=== PATIENT | female | born 1980 | race Two or more races ===

== ENCOUNTER 2021-09-22 21:35 | Emergency (ER) | payer MEDICAID ==
[~2021-09-22] VITALS: Ht 165.1 cm; Wt 68.0 kg
[2021-09-22 22:05] VITALS: BP 142/102
--- NOTE | 2021-09-23 01:57 | NUR ---
PATIENT IS PICKED UP BY DAUGHTER, EMERITA.
--- NOTE | 2021-09-23 02:02 | NUR ---
Patient discharged to home in stable condition. Written and verbal after care instructions given. Patient verbalizes understanding of instruction.
== END 2021-09-23 02:02 | disposition home or self-care (01) ==
LOC: ER 22:02
DX: F10.129 Alcohol abuse with intoxication, unspecified (principal); I10 Essential (primary) hypertension; F32.9 Major depressive disorder, single episode, unspecified; Y90.9 Presence of alcohol in blood, level not specified
CPT/HCPCS: 82962-TC

== ENCOUNTER 2023-06-15 11:07 | Inpatient (IN) | payer MEDICAID ==
[~2023-06-15] VITALS: Ht 162.6 cm; Wt 78.0 kg
--- NOTE | 2023-06-15 11:25 | NUR ---
BIBRA 86 FOR NAUSEA AND VOMITING. PATIENT HAS UTERINE CANCER AND RECEIVES CHEMOTHERAPY. A/O X 3, TOLERATING WELL ON ROOM AIR, WILL CONTINUE TO MONITOR.
--- NOTE | 2023-06-15 11:50 | NUR ---
BLOOD SAMPLES OBTAINED
[2023-06-15] MEDS ORDERED: LIDOCAINE VISCOUS 2% UD 15 ML UDC ONE (11:52)
[2023-06-15] MEDS ORDERED: ONDANSETRON HCL/PF 4 MG/2 ML VIAL ONE (11:52)
[2023-06-15] MEDS ORDERED: MAG HYDROX/AL HYDROX/SIMETH 30 ML UDC ONE (11:52)
[2023-06-15] MEDS ORDERED: MORPHINE SULFATE INJ 4 MG/ML DISP.SYRIN ONE (11:53)
[2023-06-15] MEDS ORDERED: FAMOTIDINE/PF INJ 20 MG/2 ML VIAL IV ONE ×2 (11:53→12:00)
[2023-06-15 12:00] LABS: BASOPHILS % (AUTO) 0.1 % (0.0-2.0); EOSINOPHILS % (AUTO) 0.2 % (0.0-6.0); HEMATOCRIT 28 % (33-45); HEMOGLOBIN 8.9 g/dL (11.5-14.8); LYMPHOCYTES # (AUTO) 0.5 K/uL (0.8-4.8); LYMPHOCYTES % (AUTO) 10.1 % (20.0-44.0); MEAN CORPUSCULAR HGB CONC 32 g/dl (31.0-36.0); MEAN CORPUSCULAR VOLUME 83 fL (82-100); MONOCYTES # (AUTO) 0.3 K/uL (0.1-1.30); MONOCYTES % (AUTO) 5.4 % (2.0-12.0); NEUTROPHILS # (AUTO) 4.5 K/uL (1.8-8.9); NEUTROPHILS % (AUTO) 84.2 % (43.0-81.0); PLATELET COUNT (AUTO) 141 K/uL (150-450); RED BLOOD CELL COUNT(AUTO) 3.33 MIL/uL (4.0-5.2); WHITE BLOOD COUNT (AUTO) 5.3 K/uL (4.3-11.0)
[2023-06-15] MEDS ORDERED: ONDANSETRON HCL/PF 4 MG/2 ML VIAL IVP ONE (12:00)
[2023-06-15] MEDS ORDERED: LIDOCAINE VISCOUS 2% UD 15 ML UDC MM ONE (12:00)
[2023-06-15] MEDS ORDERED: IV NS 0.9% 1,000 ML BAG IV ONE ×2 (12:00→13:00)
[2023-06-15] MEDS ORDERED: MORPHINE SULFATE INJ 2 MG/ML DISP.SYRIN IV ONE (12:00)
[2023-06-15] MEDS ORDERED: MAG HYDROX/AL HYDROX/SIMETH 30 ML UDC PO ONE (12:00)
[2023-06-15 12:11] LABS: CALCIUM, SERUM 9.3 mg/dL (8.5-10.1); CARBON DIOXIDE 28 mmol/L (21-32); CHLORIDE 94 mmol/L (98-107); CREATININE 0.7 mg/dL (0.6-1.3); GLUCOSE 95 mg/dL (74-106); POTASSIUM 3.3 mmol/L (3.5-5.1); SODIUM SERUM 137 mmol/L (136-145); UREA NITROGEN, BLOOD 13 mg/dL (7-18)
--- NOTE | 2023-06-15 12:19 | NUR ---
LACTIC ACID 5.4
[2023-06-15] MEDS ORDERED: IV NS 0.9% 250 ML IV ONE (12:23)
[2023-06-15] MEDS ORDERED: IOHEXOL-300 100 ML VIAL IV ONE (12:23)
[2023-06-15 12:24] LABS: ALANINE AMINOTRANSFERASE 101 U/L (12-78); ALBUMIN 3.9 g/dL (3.4-5.0); ALKALINE PHOSPHATASE 105 U/L (46-116); ASPARTATE AMINOTRANSFERASE 189 U/L (15-37); BILIRUBIN,DIRECT 0.2 mg/dL (0.0-0.2); BILIRUBIN,TOTAL 0.7 mg/dL (0.2-1.0); LIPASE 89 U/L (73-393); TOTAL PROTEIN, SERUM 7.7 g/dL (6.4-8.2)
--- NOTE | 2023-06-15 12:25 | NUR ---
KARINA Mayer.4MD MADE AWARE
[2023-06-15] MEDS ORDERED: PIPERACI/TAZO 3.375GM/D5W 50ML PB IV ONE (12:40)
--- NOTE | 2023-06-15 12:59 | NUR ---
MOVE SHEET SUBMITTED
[2023-06-15] MEDS ORDERED: PIPERACILLIN /TAZOBACTAM 3.375 G in IV D5W 50 ML IV ONE (13:00)
--- NOTE | 2023-06-15 13:21 | NUR ---
URINE SAMPLE OBTAINED
[2023-06-15] MEDS ORDERED: AMOX1TAB16 PO (13:29)
[2023-06-15 13:41] LABS: BILIRUBIN,URINE NEGATIVE (NEGATIVE); COLOR,URINE YELLOW (YELLOW); LEUKOCYTE ESTERASE ,URINE 1+ (NEGATIVE); NITRITE, URINE NEGATIVE (NEGATIVE); PROTEIN,URINE 1+ mg/dl (NEGATIVE); UGLUCOSE NEGATIVE (NEGATIVE); UROBILINOGEN,URINE 0.2 EU/dL (0.2)
[2023-06-15 13:56] LABS: BACTERIA,URINE Rare /HPF (None Seen); SQUAMOUS EPITHELIAL CELL,UR Few /HPF (None Seen)
--- NOTE | 2023-06-15 15:07 | NUR ---
LACTIC ACID 3.7 Addendum: 06/15/23 at 1509 by REINA MD MARINELLI
--- NOTE | 2023-06-15 16:02 | NUR ---
PATIENT TRANSFERED TO 108-1, ALL CARE ENDORSED TO RN
[2023-06-15] MEDS ORDERED: HYDROCODONE/APAP 5/325MG TABLET PO PRN (16:30)
[2023-06-15] MEDS ORDERED: ZOLPIDEM TARTRATE 5 MG TABLET PO PRN (16:30)
[2023-06-15] MEDS ORDERED: MAG HYDROX/AL HYDROX/SIMETH 30 ML UDC PO PRN (16:30)
[2023-06-15] MEDS ORDERED: ONDANSETRON HCL/PF 4 MG/2 ML VIAL IVP PRN (16:30)
[2023-06-15] MEDS ORDERED: MAGNESIUM HYDROXIDE 30 ML UDC PO PRN (16:30)
[2023-06-15] MEDS ORDERED: MORPHINE SULFATE INJ 2 MG/ML DISP.SYRIN IV PRN (16:30)
[2023-06-15] MEDS ORDERED: Z GUARD REMEDY 4 OZ OINT TP PRN (16:30)
[2023-06-15] MEDS ORDERED: IV 1/2NS 1000 ML 1,000 ML IV PRN (16:30)
[2023-06-15] MEDS ORDERED: ACETAMINOPHEN 325 MG TABLET PO PRN (16:30)
--- NOTE | 2023-06-15 19:00 | NUR ---
ADMISSION NOTE RECEIVED PATIENT FROM ER ACCOMPANIED BY ER NURSE A&O X3-4, CHINESE SPEAKING. PATIENT DAUGHTER AT BEDSIDE. ON RA, NOT IN ANY FORM OF DISTRESS NOTED. VITALS TAKEN, STABLE AND RECORDED. IV ACCESS ON LFA GAUGE 20, PATENT AND INTACT, FLUSHES WELL. PATIENT AMBULATORY WITH ASSIST. NO SKIN ISSUES NOTED, INITIAL ASSESSMENT DONE. PLACED PATIENT ON CARDIAC MONITORING. NOTIFIED DR. DEGROOT OF THE ADMISSION. ORIENTED PATIENT TO ROOM AND USE OF CALL ARORA. SAFETY MEASURES IMPLEMENTED: BED LOCKED IN THE LOWEST POSITION, SR UP X2, CALL LIGHT AND BELONGINGS WITHIN REACH. WILL ENDORSED TO NEXT NURSE FOR BJORN.
--- NOTE | 2023-06-15 19:30 | NUR ---
TRANSPORTATION DEPARTMENT HEAD OPENING NOTES PATIENT RECEIVED IN BED A/O X 4 ABLE TO VERBALIZED NEEDS AND CONCERNS, SPANISH SPEAKING, PATIENT ON ROOM AIR AND ON TELE MONITORING DEVICE, PATIENT IS CONTINENT AND AMBULATORY WITH ASSIST, SKIN IS INTACT, PATIENT IS NPO FOR NOW DUE TO NAUSEA AND VOMITING, IV IS PATENT AND INTACT ON LFA GAUGE 20 WITH 1/2 NS IL X 150 ML/HR NO INFILTRATION OR SWELLING NOTED. . KEPT PATIENT WARM AND COMFORTABLE, KEPT BED ON LOWER LOCK POSITION, WITH SIDE RAILS UP X 2 ALL THE TIME, KEPT CALL LIGHT WITHIN REACH, WILL CONTINUE TO MONITOR.
--- NOTE | 2023-06-15 19:30 | NUR ---
1929 Dr. Oviedo at bedside and examined patient, he spoke with patient's daughter via phone. No orders given at this time.
--- NOTE | 2023-06-15 21:02 | NUR ---
RN NOTE WITNESSED RETURN OF AMBIEN - WHOLE PILL - BY RNCHAVO.
[2023-06-15] MEDS: PIPERACILLIN /TAZOBACTAM 3.375 G in IV D5W 100 ML IV SCH (21:03)
[2023-06-15] MEDS ORDERED: ACETAMINOPHEN 650 MG/SUPP.RECT RC PRN (21:30)
[2023-06-15] MEDS ORDERED: PANTOPRAZOLE 40 MG VIAL IV SCH (21:30)
--- NOTE | 2023-06-15 21:30 | NUR ---
RN NOTES PATIENT COMPLAINS OF HEADACHE TYLENOL 650 MG SUPPOSITORY GIVEN, WILL CONTINUE TO MONITOR
--- NOTE | 2023-06-15 21:32 | NUR ---
RN NOTE WITNESSED ADRIANA TONY WASTE 1MG OF ATIVAN.
[2023-06-15] MEDS: LORAZEPAM INJ 2 MG/ML VIAL IV PRN (21:35)
--- NOTE | 2023-06-15 21:35 | NUR ---
RN NOTES PATIENT NOTED AGITATED AND ANXIOUS ASKING FOR ANTI ANXIETY MEDICATION, DR FRY INFORMED WITH ORDERS GIVEN AND CARRIED OUT ATIVAN 1 MG VIA IV GIVEN, WASTED 1 MG TOGETHER WITH MR. ANABELL RN. WILL CONTINUE TO MONITOR.
[2023-06-16 00:15] VITALS: BP 150/90; TEMP 97.8; O2SAT 99
[2023-06-16] MEDS: IV 1/2NS 1000 ML 1,000 ML IV PRN (03:55)
[2023-06-16] MEDS: PIPERACILLIN /TAZOBACTAM 3.375 G in IV D5W 100 ML IV SCH ×3 (05:22→20:26)
[2023-06-16 05:50] LABS: BASOPHILS % (AUTO) 0.4 % (0.0-2.0); EOSINOPHILS % (AUTO) 0.9 % (0.0-6.0); HEMATOCRIT 28 % (33-45); HEMOGLOBIN 9.1 g/dL (11.5-14.8); LYMPHOCYTES # (AUTO) 0.7 K/uL (0.8-4.8); LYMPHOCYTES % (AUTO) 16.9 % (20.0-44.0); MEAN CORPUSCULAR HGB CONC 32 g/dl (31.0-36.0); MEAN CORPUSCULAR VOLUME 85 fL (82-100); MONOCYTES # (AUTO) 0.3 K/uL (0.1-1.30); MONOCYTES % (AUTO) 8.3 % (2.0-12.0); NEUTROPHILS % (AUTO) 73.5 % (43.0-81.0); PLATELET COUNT (AUTO) 128 K/uL (150-450); RED BLOOD CELL COUNT(AUTO) 3.29 MIL/uL (4.0-5.2); WHITE BLOOD COUNT (AUTO) 4.1 K/uL (4.3-11.0)
[2023-06-16 06:05] LABS: ALBUMIN 3.7 g/dL (3.4-5.0); BILIRUBIN,DIRECT 0.4 mg/dL (0.0-0.2); BILIRUBIN,TOTAL 1.3 mg/dL (0.2-1.0); CALCIUM, SERUM 8.8 mg/dL (8.5-10.1); CREATININE 0.8 mg/dL (0.6-1.3); MAGNESIUM 1.6 mg/dL (1.8-2.4); PHOSPHORUS 3.2 mg/dL (2.5-4.9); POTASSIUM 3.2 mmol/L (3.5-5.1); TOTAL PROTEIN, SERUM 7.3 g/dL (6.4-8.2)
--- NOTE | 2023-06-16 06:32 | NUR ---
DIRECTOR OF CRITICAL CARE CLOSING NOTES PATIENT IN BED A/O X 4 ABLE TO VERBALIZED NEEDS AND CONCERNS, TELUGU SPEAKING, PATIENT ON ROOM AIR AND ON TELE MONITORING DEVICE, PATIENT IS CONTINENT AND AMBULATORY WITH ASSIST, SKIN IS INTACT, PATIENT IS NPO FOR NOW DUE TO NAUSEA AND VOMITING, IV IS PATENT AND INTACT ON LFA GAUGE 20 WITH 1/2 NS IL X 150 ML/HR NO INFILTRATION OR SWELLING NOTED. . KEPT PATIENT WARM AND COMFORTABLE,NO PAIN OR DISCOMFORT NOTED AT THIS TIME, PM CARE RENDERED, ALL DUE MEDICATIONS GIVEN ORERED, INTAKE AND OUTPUT RECORDED, ALL NEEDS ATTENDED, KEPT BED ON LOWER LOCK POSITION, WITH SIDE RAILS UP X 2 ALL THE TIME, KEPT CALL LIGHT WITHIN REACH, WILL ENDORSED TO AM SHIFT FOR BJORN.
--- NOTE | 2023-06-16 07:00 | NUR ---
RN OPENING NOTES PATIENT IN BED A/O X 4 ABLE TO VERBALIZED NEEDS AND CONCERNS, SLOVAK SPEAKING, PATIENT ON ROOM AIR WITH O2 SAT AT 95% WITH NO SOB, PAIN OR DISCOMFORT AT THIS TIME. ON NPO BECAUSE NAUSEA AND VOMITING, IV IS PATENT AND INTACT ON LFA GAUGE 20 WITH 1/2 NS IL X 150 ML/HR NO INFILTRATION OR SWELLING NOTED. ALL SAFETY PRECAUTIONS IN PLACE, BED ON LOWEST AND LOCK POSITION, SIDE RAILS UP X 2, CALL LIGHT AND TABLE WITHIN REACH, WILL CONTINUE TO MONITOR.
[2023-06-16] MEDS ORDERED: PANTOPRAZOLE 40 MG TABLET.DR PO SCH (07:30)
[2023-06-16 08:00] VITALS: BP 133/87; TEMP 98.7; O2SAT 99
[2023-06-16] MEDS: PANTOPRAZOLE 40 MG VIAL IV SCH (08:44)
[2023-06-16] MEDS: Magnesium 1GM/D5W 100ML PREMIX 100 ML IV SCH ×2 (11:03→12:03)
[2023-06-16 12:00] VITALS: BP 141/92; TEMP 98.6; O2SAT 100
[2023-06-16] MEDS: POTASSIUM CL. PREMIX PERIPHER. 50 ML IV SCH ×4 (14:25→17:29)
[2023-06-16 16:00] VITALS: BP 142/97; TEMP 98.6; O2SAT 98
--- NOTE | 2023-06-16 16:15 | NUR ---
RN NOTE DOCTOR SEVERINO DEGROOT WAS NOTIFIED THAT LAB CALLED TO REPORT GRAM NEGATIVE BACILLI PRESENT ON BLOOD CULTURE. DOCTOR WAS ALSO NOTIFIED THAT LACTIC ACID LEVEL AT 3.7. PER DOCTOR, SHE WILL NOTIFY ID DOCTOR. ORDERS RECEIVED TO PLACE PATIENT ON A CLEAR DIET. ORDERS CARRIED OUT.
--- NOTE | 2023-06-16 18:19 | NUR ---
RN CLOSING NOTES PATIENT IN BED A/O X 4 ABLE TO VERBALIZED NEEDS AND CONCERNS, IRISH SPEAKING, PATIENT ON ROOM AIR WITH O2 SAT AT 100% WITH NO SOB, PAIN OR DISCOMFORT AT THIS TIME. ON CLEAR LIQUID DIET PER DOCTOR RANJANA ORDER. IV ACCESS ON LFA GAUGE 20 WITH 1/2 NS IL X 150 ML/HR NO INFILTRATION OR SWELLING NOTED. ALL MEDICATIONS GIVEN , SKIN CARE PROVIDED, PATIENT WAS REPOSITIONED EVERY TWO HOURS. ALL SAFETY PRECAUTIONS IN PLACE, BED ON LOWEST AND LOCK POSITION, SIDE RAILS UP X 2, CALL LIGHT AND TABLE WITHIN REACH. REPORT WILL BE GIVEN TO DISTRICT CAPTAIN NURSE FOR BJORN.
--- NOTE | 2023-06-16 19:20 | NUR ---
REACTOR FUELING SUPERVISOR OPENING NOTES - RECEIVED PATIENT AWAKE, HOB IN SEMI-DAVIS'S. A/O X4, FIJIAN/FIJIAN SPEAKING. UNDERSTANDS BASIC CYMRAES, CALLS DAUGHTER IF NEEDED TO TRANSLATE. BREATHING EVEN AND NON-LABORED ON ROOM AIR. NO C/O PAIN, NAUSEA OR VOMITING. ON TELE MONITOR READING SINUS RHYTHM AT 79 BPM. HAS THE FF IV ACCESS: RIGHT FOREARM #22G AND SALINE LOCKED; LEFT FOREARM #20G WITH 1/2 NS CURRENTLY NOT INFUSING. NO S/S OF INFILTRATION NOTED. SAFETY PRECAUTIONS IN PLACE: BED LOCKED AND IN LOW POSITION, SIDE RAILS UP X2, CALL LIGHT WITHIN REACH. WILL CONTINUE PLAN OF CARE.
[2023-06-16 20:00] VITALS: BP 146/99; TEMP 98.6; O2SAT 100
--- NOTE | 2023-06-16 21:04 | NUR ---
PATIENT ASKED FOR SOMETHING TO EAT, OFFERED CRACKERS AND VANILLA PUDDING. NO C/O ABDOMINAL PAIN, N/V AFTER 30 MINUTES. WILL CONTINUE TO MONITOR.
[2023-06-17] VITALS: BP 137/93; TEMP 98.3; O2SAT 99
[2023-06-17 04:00] VITALS: BP 127/90; TEMP 98.1; O2SAT 97
[2023-06-17] MEDS: PIPERACILLIN /TAZOBACTAM 3.375 G in IV D5W 100 ML IV SCH ×3 (05:00→20:38)
--- NOTE | 2023-06-17 06:55 | NUR ---
ORACLE FUSION CONSULTANT CLOSING NOTES - PATIENT AWAKE, ABLE TO RELAY SOME NEEDS. DENIES SOB, , NAUSEA, VOMITING, DIARRHEA, TREMORS OR ANY PAIN AT THIS TIME. SATURATING WELL ON ROOM AIR. AFEBRILE. TELE MONITOR SHOWS SINUS RHYTHM AT 71 BPM. LEFT FOREARM IV ACCESS INTACT, PATENT AND FLUSHING. REMOVED RIGHT FOREARM PIV D/T PAIN ON FLUSHING. CLEAR YELLOW URINE OUTPUT NOTED. ALL DUE MEDS GIVEN AND NEEDS ATTENDED. TOLERATED CRACKERS AND PUDDING WELL. SAFETY PRECAUTIONS MAINTAINED. WILL ENDORSE TO AM RN FOR BJORN.
[2023-06-17 07:06] LABS: BASOPHILS % (AUTO) 0.3 % (0.0-2.0); EOSINOPHILS % (AUTO) 3.3 % (0.0-6.0); HEMATOCRIT 29 % (33-45); HEMOGLOBIN 9.2 g/dL (11.5-14.8); LYMPHOCYTES # (AUTO) 0.4 K/uL (0.8-4.8); LYMPHOCYTES % (AUTO) 17.1 % (20.0-44.0); MEAN CORPUSCULAR HGB CONC 31 g/dl (31.0-36.0); MEAN CORPUSCULAR VOLUME 84 fL (82-100); MONOCYTES # (AUTO) 0.3 K/uL (0.1-1.30); MONOCYTES % (AUTO) 12.2 % (2.0-12.0); NEUTROPHILS # (AUTO) 1.4 K/uL (1.8-8.9); NEUTROPHILS % (AUTO) 67.1 % (43.0-81.0); PLATELET COUNT (AUTO) 123 K/uL (150-450); RED BLOOD CELL COUNT(AUTO) 3.48 MIL/uL (4.0-5.2); WHITE BLOOD COUNT (AUTO) 2.1 K/uL (4.3-11.0)
[2023-06-17 07:28] LABS: CALCIUM, SERUM 9.2 mg/dL (8.5-10.1); CREATININE 0.8 mg/dL (0.6-1.3); MAGNESIUM 2.1 mg/dL (1.8-2.4); POTASSIUM 3.9 mmol/L (3.5-5.1)
--- NOTE | 2023-06-17 07:30 | NUR ---
TRAVEL TICKETING REVIEWER NOTES PT IN BED, AWAKE, ALERT AND ORIENTED, NO COMPLAINT OF PAIN OR MICHAEL DISCOMFORT, NO COMPLAINT OF N/V, BREATHING PATTER NORMAL, CALL LIGHT WITHIN REACH.
[2023-06-17 08:00] VITALS: BP 142/102; TEMP 98.6; O2SAT 100
[2023-06-17] MEDS: PANTOPRAZOLE 40 MG VIAL IV SCH (08:40)
[2023-06-17] MEDS: IV 1/2NS 1000 ML 1,000 ML IV PRN (11:51)
[2023-06-17 12:00] VITALS: BP 129/86; TEMP 98.1; O2SAT 100
[2023-06-17 16:00] VITALS: BP 134/88; TEMP 98.4; O2SAT 100
--- NOTE | 2023-06-17 18:05 | NUR ---
FUND ACCOUNTANT NOTES PT IN BED, AWAKE, ALERT AND ORIENTED, NO COMPLAINT OF PAIN OR ANY DISCOMFORT, AMBULATES TO THE BATHROOM WITH STEADY GAIT, VISITORS AT BEDSIDE, SEEN BY DR. DEGROOT TODAY, IV FLUIDS INFUSING WELL, ALL NEEDS ATTENDED.
--- NOTE | 2023-06-17 19:05 | NUR ---
MORTGAGE COLLECTOR OPENING NOTE PATIENT IS SITTING IN BED WITH HOB ELEVATED AT 30 DEGREE. PT IS ALERT AND ORIENTED, AO X 4. SHE IS GIBRALTARIAN SPEAKING; UNDERSTANDS SIMPLE JAPANESE. PT IS ON RA, TOLERATED WELL. NO S/S OF DISTRESS OR SOB. PT IS ON EXTERNAL WALLPAPER REMOVER STEAM, HER CURRENT HEART RHYTHM IS SR WITH HR AT 80S. IV ACCESS IS AT HER L FA, #20G. INFUSING 1/2 NS @ 150 ML/HR. IV SITE IS PATENT AND INTACT. PT DENIES OF HAVING PAIN AT THIS MOMENT. SAFETY MEASURES ARE IN PLACED: BED IN LOWEST AND LOCKED POSITION; SIDE RAILS UP X 2; CALL LIGHT AND TABLE ARE WITHIN REACH. WILL CONTINUE MONITORING THE PT AND PROVIDE THE CARE PT NEEDS.
[2023-06-17 20:00] VITALS: BP 118/80; TEMP 98.3; O2SAT 97
[2023-06-18] VITALS: BP_SYST 123; BP_SYST 135; BP_DIAS 81; BP_DIAS 89; TEMP 97.5; TEMP 97.7; O2SAT 100; O2SAT 94
[2023-06-18 04:00] VITALS: BP 119/76; TEMP 98.9; O2SAT 97
[2023-06-18] MEDS: PIPERACILLIN /TAZOBACTAM 3.375 G in IV D5W 100 ML IV SCH ×3 (04:05→21:57)
--- NOTE | 2023-06-18 06:31 | NUR ---
WIRE WHEELER CLOSING NOTE PATIENT IS SITTING IN BED WITH HOB ELEVATED AT 30 DEGREE. PT IS ALERT AND ORIENTED, AO X 4. SHE IS ISRAELI SPEAKING; UNDERSTANDS SIMPLE WOLOF. PT IS ON RA, TOLERATED WELL. NO S/S OF DISTRESS OR SOB. PT IS ON EXTERNAL TRANSFORMER MECHANIC, HER CURRENT HEART RHYTHM IS SR WITH HR AT 80S. IV ACCESS IS AT HER L FA, #20G. INFUSING ZOSYN @ 25 ML/HR. IV SITE IS PATENT AND INTACT. PT DENIES OF HAVING PAIN AT THIS MOMENT. SAFETY MEASURES ARE IN PLACED: BED IN LOWEST AND LOCKED POSITION; SIDE RAILS UP X 2; CALL LIGHT AND TABLE ARE WITHIN REACH. WILL ENDORSE NEXT SHIFT NURSE FOR CONTINUING PT CARE.
--- NOTE | 2023-06-18 07:30 | NUR ---
ms rn received on bed, awake.alert.oriented x4,not in any form of distress, respirations even and unlabored.no sob noted, came in w/ UTI/ sepsis, denies pain the whole shift, independent/ambulatory, on room air w/ adequate saturation,was seen by dr. love w/ orders made and carried out, care roundings done, will endorse to shift mechanic for omar.
[2023-06-18 07:41] LABS: MEAN CORPUSCULAR HGB CONC 31 g/dl (31.0-36.0); MONOCYTES # (AUTO) 0.3 K/uL (0.1-1.30)
[2023-06-18 07:46] LABS: ALBUMIN 3.3 g/dL (3.4-5.0); BILIRUBIN,DIRECT 0.1 mg/dL (0.0-0.2); BILIRUBIN,TOTAL 0.6 mg/dL (0.2-1.0); CALCIUM, SERUM 9.1 mg/dL (8.5-10.1); CREATININE 0.6 mg/dL (0.6-1.3); PHOSPHORUS 4.3 mg/dL (2.5-4.9); POTASSIUM 4.2 mmol/L (3.5-5.1); TOTAL PROTEIN, SERUM 7.1 g/dL (6.4-8.2)
[2023-06-18 08:00] VITALS: BP 136/99; TEMP 97.9; O2SAT 98
[2023-06-18] MEDS: PANTOPRAZOLE 40 MG/PACK PACK PO SCH (09:12)
[2023-06-18 09:28] LABS: BASOPHILS % (AUTO) 0.4 % (0.0-2.0); EOSINOPHILS % (AUTO) 3.6 % (0.0-6.0); HEMOGLOBIN 8.9 g/dL (11.5-14.8); LYMPHOCYTES # (AUTO) 0.5 K/uL (0.8-4.8); LYMPHOCYTES % (AUTO) 20.7 % (20.0-44.0); MEAN CORPUSCULAR VOLUME 85 fL (82-100); MONOCYTES % (AUTO) 15.2 % (2.0-12.0); NEUTROPHILS # (AUTO) 1.3 K/uL (1.8-8.9); NEUTROPHILS % (AUTO) 60.1 % (43.0-81.0); PLATELET COUNT (AUTO) 126 K/uL (150-450); RED BLOOD CELL COUNT(AUTO) 3.37 MIL/uL (4.0-5.2); WHITE BLOOD COUNT (AUTO) 2.2 K/uL (4.3-11.0)
[2023-06-18 09:57] LABS: HEMATOCRIT 29 % (33-45)
[2023-06-18 12:00] VITALS: BP 145/96; TEMP 98.3
[2023-06-18 16:00] VITALS: BP 149/97; TEMP 98.2; O2SAT 99
--- NOTE | 2023-06-18 19:30 | NUR ---
ETHANOL QUALITY LEADER OPENING NOTE RECEIVED PT AWAKE IN BED, FAMILY AT BEDSIDE. A/O X4, TAIWANESE/NORTHERN IRISH SPEAKING, UNDERSTANDS SIMPLE CROATIAN. ON RA WITH NO S/S OF DISTRESS OR SOB. DENIES PAIN AT THIS TIME. ON SILO WORKER READING SR, 80 HR. IV ACCESS LFA, #20G, PATENT, INTACT, FLUSHING WELL, INFUSING 1/2 NS @ 150 ML/HR. SAFETY MEASURES IN PLACE: BED IN LOWEST AND LOCKED POSITION, SIDE RAILS UP X3, CALL LIGHT AND TABLE ARE WITHIN REACH. WILL CONTINUE TO MONITOR AND ASSIST.
[2023-06-18 20:00] VITALS: BP 149/97; TEMP 98.2; O2SAT 97
--- NOTE | 2023-06-18 22:45 | NUR ---
RN NOTE: PT C/O BURNING PAIN ON LFA IV SITE WHEN RUNNING THE 045% AT 150 ML/HR. REDNESS AND LEAKAGE NOTED. INSERTED NEW IV LINE #24G ON R HAND, PT SHOUTING DUE TO PAIN AND VERY AGITATED EVEN ON LIGHT TOUCH. GIVEN PRESCRIBED ATIVAN 1MG. STARTED IV FLUIDS AGAIN, PT STILL C/O PAIN AT 150 ML/HR. PT ONLY ABLE TOLERATE 25 ML/HR. ZOSYN INFUSION AT 25 ML/HR CONTINUED FOR NOW.
[2023-06-18] MEDS: LORAZEPAM INJ 2 MG/ML VIAL IV PRN (22:47)
--- NOTE | 2023-06-18 23:14 | NUR ---
WITNESSED WASTE OF ATIVAN 1 MG IV.
--- NOTE | 2023-06-18 23:15 | NUR ---
RN NOTE: WASTED ATIVAN 1MG/0.5ML DUE TO PARTIAL DOSE, WITNESSED BY ELENOR RN.
[2023-06-19] VITALS: BP 135/89; TEMP 97.5; O2SAT 100
[2023-06-19] MEDS ORDERED: IV 1/2NS 1000 ML 1,000 ML IV PRN
--- NOTE | 2023-06-19 | NUR ---
RN NOTE: INFORMED ELECTRIC MOTOR CONTROLS ASSEMBLER ERLINDA FRY ABOUT PT COMPLAINT OF BURNING SENSATION WHEN RUNNING 0.45% NS @150 ML/HR, DECREASED THE RATE TO 50 ML/HR. Addendum: 06/19/23 at 0530 by RICKY RAMOS RN HOSPITALIST ALSO APPROVED MIDLINE INSERTION.
[2023-06-19 04:00] VITALS: BP 117/70; TEMP 98.1; O2SAT 99
[2023-06-19] MEDS: PIPERACILLIN /TAZOBACTAM 3.375 G in IV D5W 100 ML IV SCH ×3 (04:58→20:48)
--- NOTE | 2023-06-19 05:30 | NUR ---
RN NOTE: INFORMED NIGHT NURSING PRECISION LENS GENERATOR OF MIDLINE INSERTION ORDER. CHARGE NURSE ALSO AWARE.
--- NOTE | 2023-06-19 06:24 | NUR ---
CUSTOMER SERVICE OPERATOR CLOSING NOTE PT SLEEPING IN BED, EASILY AROUSED. A/O X4, DUTCH/GREEK SPEAKING, UNDERSTANDS SIMPLE PORTUGUESE. STABLE ON RA WITH NO S/S OF DISTRESS OR SOB. DENIES PAIN AT THIS TIME. ON MACHINE FEED OPERATOR READING SR, 67 HR. IV ACCESS R HAND #24G, PATENT, INTACT, FLUSHING WELL, INFUSING ZOSYN 3.375G AT 25 ML/HR. ALL CARE PROVIDED AND MEDS TOLERATED WELL. SAFETY MEASURES MAINTAINED: BED IN LOWEST AND LOCKED POSITION, SIDE RAILS UP X3, CALL LIGHT AND TABLE ARE WITHIN REACH. WILL ENDORSE BJORN TO DAY SHIFT NURSE.
[2023-06-19 06:42] LABS: BASOPHILS % (AUTO) 0.3 % (0.0-2.0); EOSINOPHILS % (AUTO) 5.6 % (0.0-6.0); HEMATOCRIT 28 % (33-45); HEMOGLOBIN 8.6 g/dL (11.5-14.8); LYMPHOCYTES # (AUTO) 0.6 K/uL (0.8-4.8); LYMPHOCYTES % (AUTO) 25.5 % (20.0-44.0); MEAN CORPUSCULAR HGB CONC 31 g/dl (31.0-36.0); MEAN CORPUSCULAR VOLUME 85 fL (82-100); MONOCYTES # (AUTO) 0.5 K/uL (0.1-1.30); NEUTROPHILS # (AUTO) 1.1 K/uL (1.8-8.9); NEUTROPHILS % (AUTO) 47.6 % (43.0-81.0); PLATELET COUNT (AUTO) 130 K/uL (150-450); RED BLOOD CELL COUNT(AUTO) 3.26 MIL/uL (4.0-5.2); WHITE BLOOD COUNT (AUTO) 2.3 K/uL (4.3-11.0)
[2023-06-19 07:32] LABS: CALCIUM, SERUM 9.5 mg/dL (8.5-10.1); CREATININE 0.7 mg/dL (0.6-1.3); MAGNESIUM 1.9 mg/dL (1.8-2.4); PHOSPHORUS 4.9 mg/dL (2.5-4.9); POTASSIUM 4.5 mmol/L (3.5-5.1)
--- NOTE | 2023-06-19 07:47 | NUR ---
RN OPENING NOTE RECEIVED PATIENT IN BED AO x 4, SOUTH AFRICAN/RWANDAN SPEAKING. ABLE TO RESPONDS ALL PHYSICAL STIMULI. RESPIRATORY EVEN AND UNLABORED IN ROOM AIR. IN NO ACUTE RESPIRATORY DISTRESS OBSERVED. SKIN IS WARM TO TOUCH, KEEP CLEAN/DRY. KEPT ELEVATED HOB FOR ASPIRATION PRECAUTION/ENSURE AIRWAY, ALSO LOWEST BED POSITIONED. BED ALARM IS ON AT ALL TIMES FOR SAFETY. CALL LIGHT WITHIN REACH, WILL CONTINUE TO MONITOR.
[2023-06-19 08:00] VITALS: BP 132/82; TEMP 97.7; O2SAT 100
[2023-06-19] MEDS: PANTOPRAZOLE 40 MG/PACK PACK PO SCH (08:36)
[2023-06-19 09:28] LABS: EOSINOPHILS % (MANUAL) 1 % (0-4); LYMPHOCYTES % (MANUAL) 27 % (16-48); MONOCYTES % (MANUAL) 18 % (0-11.0); NEUTROPHILS % (MANUAL) 54 (42-76)
[2023-06-19 12:00] VITALS: BP 137/83; TEMP 97.8
[2023-06-19 16:00] VITALS: BP 120/74; TEMP 97.9; O2SAT 98
--- NOTE | 2023-06-19 18:48 | NUR ---
RN CLOSING NOTE PATIENT RESTING IN BED. HER AT BEDSIDE. IN NO ACUTE DISTRESS OBSERVED. RESPIRATORY EVEN AND UNLABORED IN ROOM AIR. SKIN IS WARM TO TOUCH KEEP CLEAN/DRY. ENCOURAGED TO PATIENT ORAL FLUID INTAKE TOLERATED. KEPT ELEVATED HOB FOR ENSURE AIRWAY/ASPIRATION PRECAUTION, AND LOWEST BED POSITION. BED ALARM IS ON AT ALL THE TIME FOR SAFETY. CALL LIGHT WITHIN REACH, WILL ENDORSE CHART WRITER.
--- NOTE | 2023-06-19 19:30 | NUR ---
DIRECTOR OF STRATEGIC MARKETING OPENING NOTES - RECEIVED PATIENT AWAKE IN BED, PRESENT IN ROOM. A/O X4, CZECH SPEAKING. BREATHING EVEN AND NON-LABORED ON ROOM AIR. NO C/O PAIN, NAUSEA OR VOMITING. PER PATIENT, SHE HAD BM X2 WNL. ON TELE MONITOR READING SINUS RHYTHM AT 80 BPM. HAS RIGHT HAND IV ACCESS #24G INTACT, 0.45% NS CURRENTLY ON HOLD D/T PAIN WHEN INFUSING. SAFETY PRECAUTIONS IN PLACE: BED LOCKED AND IN LOW POSITION, SIDE RAILS UP X2, CALL LIGHT WITHIN REACH. WILL CONTINUE PLAN OF CARE.
[2023-06-19 20:00] VITALS: BP 136/95; TEMP 98.3; O2SAT 100
[2023-06-20] VITALS: BP 124/74; TEMP 98.1; O2SAT 100
--- NOTE | 2023-06-20 01:00 | NUR ---
RESTARTED IVF AND PLACED ON 20 ML/HR ONLY, PATIENT TOLERATING WITH NO PAIN.
[2023-06-20 04:00] VITALS: BP 116/74; TEMP 97.9; O2SAT 99
[2023-06-20] MEDS: PIPERACILLIN /TAZOBACTAM 3.375 G in IV D5W 100 ML IV SCH (04:35)
[2023-06-20 06:21] LABS: BASOPHILS % (AUTO) 0.2 % (0.0-2.0); EOSINOPHILS % (AUTO) 5.3 % (0.0-6.0); HEMATOCRIT 29 % (33-45); LYMPHOCYTES # (AUTO) 0.5 K/uL (0.8-4.8); LYMPHOCYTES % (AUTO) 23.7 % (20.0-44.0); MEAN CORPUSCULAR HGB CONC 31 g/dl (31.0-36.0); MEAN CORPUSCULAR VOLUME 85 fL (82-100); MONOCYTES # (AUTO) 0.6 K/uL (0.1-1.30); MONOCYTES % (AUTO) 25.6 % (2.0-12.0); NEUTROPHILS % (AUTO) 45.2 % (43.0-81.0); PLATELET COUNT (AUTO) 144 K/uL (150-450); RED BLOOD CELL COUNT(AUTO) 3.39 MIL/uL (4.0-5.2); WHITE BLOOD COUNT (AUTO) 2.2 K/uL (4.3-11.0)
[2023-06-20 06:32] LABS: ALBUMIN 3.5 g/dL (3.4-5.0); BILIRUBIN,DIRECT 0.1 mg/dL (0.0-0.2); BILIRUBIN,TOTAL 0.3 mg/dL (0.2-1.0); CALCIUM, SERUM 9.3 mg/dL (8.5-10.1); CREATININE 0.6 mg/dL (0.6-1.3); MAGNESIUM 1.9 mg/dL (1.8-2.4); PHOSPHORUS 4.6 mg/dL (2.5-4.9); POTASSIUM 3.4 mmol/L (3.5-5.1); TOTAL PROTEIN, SERUM 7.1 g/dL (6.4-8.2)
--- NOTE | 2023-06-20 06:52 | NUR ---
DATA MANAGEMENT CONSULTANT CLOSING NOTES - PATIENT SLEEPING, EASY TO AROUSE. ABLE TO RELAY SOME NEEDS. NO CARDIAC OR RESPIRATORY DISTRESS THROUGHOUT THE NIGHT. SATURATING WELL ON ROOM AIR. AFEBRILE. NO EPISODE OF N/V/D. TELE MONITOR SHOWS SINUS RHYTHM AND SINUS TACHYCARDIA AT 70-120 BPM. RIGHT HAND IV ACCESS WITH IVPB ZOSYN INFUSING WELL AT 25 ML/HR. ALL DUE MEDS GIVEN AND NEEDS ATTENDED. AMBULATORY AND INDEPENDENT WITH ADLS. SAFETY PRECAUTIONS MAINTAINED. WILL ENDORSE TO AM RN FOR BJORN.
--- NOTE | 2023-06-20 07:38 | NUR ---
OIL AGENT OPENING NOTES RECEIVED PATIENT SLEEPING, EASY TO AROUSE. ABLE TO RELAY SOME NEEDS. A/0 X4, NAMIBIAN SPEAKING ONLY. SATURATING WELL ON ROOM AIR. TELE MONITOR SHOWS SINUS RHYTHM 69 BPM. RIGHT HAND IV ACCESS WITH IVPB ZOSYN INFUSING WELL AT 25 ML/HR. ALL SAFETY PRECAUTIONS MAINTAINED.SIDE RAILS UP X2. BED ALARM ON
[2023-06-20 08:00] VITALS: BP 130/87; TEMP 98.3; O2SAT 100
[2023-06-20] MEDS ORDERED: POTASSIUM CHLORIDE 20 MEQ POWDER PACKET PO SCH (09:00)
[2023-06-20] MEDS ORDERED: CLINDAMYCIN HCL 150 MG CAPSULE PO SCH (11:00)
[2023-06-20 12:00] VITALS: BP 134/95; TEMP 97.9; O2SAT 100
[2023-06-20 13:32] LABS: NEUTROPHILS % (MANUAL) 48 (42-76)
[2023-06-20 13:33] LABS: BASOPHILS % (MANUAL) 0 % (0.0-2.0); EOSINOPHILS % (MANUAL) 6 % (0-4); LYMPHOCYTES % (MANUAL) 25 % (16-48); MONOCYTES % (MANUAL) 21 % (0-11.0)
[2023-06-20] MEDS ORDERED: CLIN-27 PO (13:45)
--- NOTE | 2023-06-20 16:43 | NUR ---
RN NOTE PT LEFT IN STABLE CONDITION. PT ALERT AND ORIENTED X4. ABLE TO MAKE NEEDS KNOWN. REMOVED IV AND TELE MONITOR BOX. WENT OVER DISCHARGE PAPERWORK, HEALTH TEACHINGS AND MEDICATION LIST. PT VERBALIZED UNDERSTANDING. PT WAS ABLE TO GET PRESCRIPTION FILLED FROM [facility]. PT PICKED UP BY AND ESCORTED OUT. ALL BELONGINGS WITH PT. Addendum: 06/20/23 at 1708 by HOLLIE STORM RN DISCHARGE NOTE
[2023-06-21] MEDS ORDERED: PANTOPRAZOLE 40 MG TABLET.DR PO SCH (07:30)
== END 2023-06-20 16:40 | disposition home or self-care (01) | DRG 254 ==
LOC: ER 11:09 → TELE1 16:00
PROVIDERS: ADMIT Student in an Organized Health Care Education/Training Program; ATTEND Student in an Organized Health Care Education/Training Program
DX: K43.6 Other and unspecified ventral hernia with obstruction, without gangrene (principal); D61.818 Other pancytopenia; R78.81 Bacteremia; K76.0 Fatty (change of) liver, not elsewhere classified; E87.6 Hypokalemia; D18.03 Hemangioma of intra-abdominal structures; C53.9 Malignant neoplasm of cervix uteri, unspecified; D64.9 Anemia, unspecified; N39.0 Urinary tract infection, site not specified; I10 Essential (primary) hypertension; K80.20 Calculus of gallbladder without cholecystitis without obstruction; R74.01 Elevation of levels of liver transaminase levels; F10.10 Alcohol abuse, uncomplicated; Z92.21 Personal history of antineoplastic chemotherapy; Z92.3 Personal history of irradiation
CPT/HCPCS: 36415; 76705-TC; 80048-TC; 80076-TC; 81001; 83605-TC; 83690-TC; 83735-TC; 84100-TC; 84703-TC; 85025-TC; 86704; 86709; 86803; 87040-TC; 87086-TC; 87340; 87806; A4223; C9113; G0378; G0480; J2060; J2270; J2405; J2543; J3475; J3480; J3490; J7030; J7050; J7060; Q9967

== ENCOUNTER → 2024-07-09 | Emergency (ER) | payer MEDICAID ==
[~2024-07-09] VITALS: Ht 165.1 cm; Wt 68.0 kg
[~2024-07-09] MED LIST: AMOX1TAB16 PO; CLIN-27 PO
[2024-07-10 00:49] VITALS: BP 121/90; TEMP 98; O2SAT 96
== END | disposition home or self-care (01) ==
LOC: ER 20:46
DX: F10.129 Alcohol abuse with intoxication, unspecified (principal); Z79.899 Other long term (current) drug therapy; Z98.890 Other specified postprocedural states; Z60.2 Problems related to living alone; Y90.0 Blood alcohol level of less than 20 mg/100 ml
CPT/HCPCS: 82962-TC

== ENCOUNTER 2024-09-12 21:08 | Emergency (ER) | payer MEDICAID ==
[~2024-09-12] VITALS: Ht 167.6 cm; Wt 79.4 kg
[2024-09-12 22:17] LABS: BASOPHILS % (AUTO) 0.7 % (0.0-2.0); EOSINOPHILS % (AUTO) 0.3 % (0.0-6.0); HEMATOCRIT 39 % (33-45); HEMOGLOBIN 13.3 g/dL (11.5-14.8); LYMPHOCYTES # (AUTO) 1.8 K/uL (0.8-4.8); LYMPHOCYTES % (AUTO) 31.7 % (20.0-44.0); MEAN CORPUSCULAR HEMOGLOBIN 31 PG (26.0-33.0); MEAN CORPUSCULAR HGB CONC 34 g/dl (31.0-36.0); MEAN CORPUSCULAR VOLUME 91 fL (82-100); MONOCYTES # (AUTO) 0.6 K/uL (0.1-1.30); MONOCYTES % (AUTO) 10.6 % (2.0-12.0); NEUTROPHILS # (AUTO) 3.2 K/uL (1.8-8.9); NEUTROPHILS % (AUTO) 56.7 % (43.0-81.0); PLATELET COUNT (AUTO) 272 K/uL (150-450); RED CELL DISTRIBUTION WIDTH 14.6 % (11.5-15.0); WHITE BLOOD COUNT (AUTO) 5.7 K/uL (4.3-11.0)
[2024-09-12 22:27] LABS: APPEARANCE,URINE CLEAR (CLEAR); BILIRUBIN,URINE NEGATIVE (NEGATIVE); BLOOD, URINE NEGATIVE Ery/uL (NEGATIVE); COLOR,URINE YELLOW (YELLOW); KETONES,URINE NEGATIVE (NEGATIVE); LEUKOCYTE ESTERASE ,URINE NEGATIVE (NEGATIVE); NITRITE, URINE NEGATIVE (NEGATIVE); PH,URINE 7.5 (5.0-8.0); PROTEIN,URINE NEGATIVE (NEGATIVE); UGLUCOSE NEGATIVE (NEGATIVE); UROBILINOGEN,URINE 0.2 EU/dL (0.2)
[2024-09-12 22:34] LABS: CALCIUM, SERUM 8.8 mg/dL (8.5-10.1); CREATININE 0.8 mg/dL (0.6-1.3); POTASSIUM 3.8 mmol/L (3.5-5.1)
[2024-09-12 22:35] LABS: PREGNANCY TEST URINE QUAL NEGATIVE (NEGATIVE)
[2024-09-12 22:38] LABS: INR 1.03 (0.91-1.10); PARTIAL THROMBOPLASTIN TIME 27.5 SEC (24.3-34.3); PROTHROMBIN TIME 10.9 SECS (9.2-11.1)
[2024-09-12] MEDS ORDERED: ONDANSETRON HCL/PF 4 MG/2 ML VIAL ONE (22:39)
[2024-09-12] MEDS ORDERED: MORPHINE SULFATE INJ 2 MG/ML DISP.SYRIN ONE (22:39)
[2024-09-12 22:41] LABS: ALBUMIN 4.1 g/dL (3.4-5.0); BILIRUBIN,DIRECT 0.2 mg/dL (0.0-0.2); BILIRUBIN,TOTAL 0.5 mg/dL (0.2-1.0); TOTAL PROTEIN, SERUM 7.5 g/dL (6.4-8.2)
[2024-09-12] MEDS: ONDANSETRON HCL/PF 4 MG/2 ML VIAL IVP ONE (22:43)
[2024-09-12] MEDS: MORPHINE SULFATE INJ 2 MG/ML DISP.SYRIN IV ONE (22:43)
[2024-09-12] MEDS: IV NS 0.9% 1,000 ML BAG IV ONE (22:43)
[2024-09-13 00:20] VITALS: BP 148/100; TEMP 98.3; O2SAT 98
== END 2024-09-13 00:20 | disposition home or self-care (01) ==
LOC: ER 21:58
DX: R10.9 Unspecified abdominal pain (principal); R11.0 Nausea; F10.129 Alcohol abuse with intoxication, unspecified; I10 Essential (primary) hypertension; Z85.41 Personal history of malignant neoplasm of cervix uteri; Z87.59 Personal history of other complications of pregnancy, childbirth and the puerperium; Z90.721 Acquired absence of ovaries, unilateral; Z60.2 Problems related to living alone; Y90.6 Blood alcohol level of 120-199 mg/100 ml
CPT/HCPCS: 99285; 96374; 96361; 96375; 74176; 85025; 80048; 83690; 80076; 84703; 81003; 36415; 85730; 80320; J2405; J7030; J2270; G0480